=== PATIENT | male | born 1960 | race Two or more races ===

== ENCOUNTER 2021-02-09 17:56 | Emergency (ER) | payer SELFPAY ==
[2021-02-09 18:59] VITALS: BP 150/54; PULSE 75; TEMP 98.1; BMI 26.2
[2021-02-09] MEDS ORDERED: ACETAMINOPHEN INJECTION 100 ML IVPB ONE (19:12)
== END 2021-02-09 20:41 | disposition home or self-care (01) ==
LOC: JER 17:56 → JERFT 17:56
DX: M79.672 Pain in left foot (principal)
CPT/HCPCS: 72100-TC-FY; 73562-TC-LT-FY; 73610-TC-LT-FY; 73630-TC-LT; 99283-25